=== PATIENT | male | born 1945 | race American Indian/Alaskan Native ===

== ENCOUNTER 2020-11-02 19:00 | Emergency (ER) | payer MEDICARE ==
--- NOTE | 2020-11-02 23:38 | Emergency Department Report ---
ED General Adult HPI - General Stated complaint: G TUBE PLACEMENT Time Seen by Provider: 11/02/20 21:40 - History of Present Illness Initial comments: 75-year-old male, history of adult failure to thrive, presents to ED from [facility] with report of G-tube displacement. detention note states that there was some "bleeding from the G-tube site with possible retracting of tubing." Unable to get any history from patient as he is nonverbal. -: unknown Location: abdomen ED Review of Systems ROS: Stated complaint: G TUBE PLACEMENT Other details as noted in HPI Comment: Unobtainable due to pts medical conditions ED Physical Exam - General General appearance: alert, in no apparent distress - Head Head exam: Present: atraumatic, normocephalic - Eye Eye exam: Present: normal appearance - ENT ENT exam: Present: mucous membranes moist - Neck Neck exam: Present: normal inspection - Respiratory Respiratory exam: Present: normal lung sounds bilaterally. Absent: respiratory distress - Cardiovascular Cardiovascular Exam: Present: regular rate, normal rhythm - GI/Abdominal GI/Abdominal exam: Present: soft, other (G-tube present in LUQ, appears clean dry intact, no blood present). Absent: distended - Extremities Exam Extremities exam: Present: other (Contractures noted to extremities) - Neurological Exam Neurological exam: Present: alert, other (nonverbal) - Skin Skin exam: Present: warm, dry, intact, normal color ED Course Vital Signs 11/02/20 23:57 Temperature 97.6 F Pulse Rate 84 Respiratory 18 Rate Blood Pressure 147/71 [Left] O2 Sat by Pulse 99 Oximetry ED Medical Decision Making - Medical Decision Making G-tube is in place. RN able to flush G-tube. G-tube site is clean dry and intact. No bleeding present. Vitals are stable. [facility]. Critical care attestation.: If time is entered above; I have spent that time in minutes in the direct care of this critically ill patient, excluding procedure time. ED Disposition Clinical Impression: Encounter for attention to gastrostomy Disposition: 01 HOME / SELF CARE / HOMELESS Is pt being admited?: No Condition: Stable Instructions: Gastrostomy Tube Home Guide, Adult Referrals: CHELSI JACKSON MD [Primary Care Provider] - 3-5 Days Time of Disposition: 00:01
[2020-11-02 23:58] VITALS: BP 147/71
== END 2020-11-03 01:55 | disposition home or self-care (01) ==
LOC: ED 19:00
DX: Z43.1 Encounter for attention to gastrostomy (principal)
CPT/HCPCS: 99283